=== PATIENT | female | born 1985 | race American Indian/Alaskan Native ===

== ENCOUNTER 2017-05-30 05:42 | Emergency (ER) | payer BC, OTHER ==
[2017-05-30] MEDS ORDERED: ASPIRIN PO ONE (07:09)
[2017-05-30 07:40] LABS: BUN/Creatinine Ratio 11; Basophils % (Auto) 0.6 % (0.0-1.8); Blood Urea Nitrogen 9 mg/dL (7-17); Calcium 8.7 mg/dL (8.4-10.2); Eosinophils # (Auto) 0.3 K/mm3 (0.0-0.4); Eosinophils % (Auto) 3.8 % (0.0-4.3); Hematocrit 38.8 % (30.3-42.9); Hemoglobin 12.8 gm/dl (10.1-14.3); Hemolysis Index 2; Lymphocytes # (Auto) 2.1 K/mm3 (1.2-5.4); Lymphocytes % (Auto) 28.3 % (13.4-35.0); Mean Corpuscular HGB Conc 33 % (30-34); Mean Corpuscular Hemoglobin 28 pg (28-32); Mean Corpuscular Volume 86 fl (79-97); Monocytes # (Auto) 0.6 K/mm3 (0.0-0.8); Monocytes % (Auto) 8.5 % (0.0-7.3); Platelet Count 227 K/mm3 (140-440); Red Cell Distribution Width 13.3 % (13.2-15.2)
[2017-05-30 07:52] LABS: Bilirubin,Urine NEG (Negative); Blood,Urine NEG (Negative); Color,Urine Yellow (Yellow); Mucus,Urine FEW /HPF; Protein,Urine <15 mg/dL mg/dL (Negative); Urobilinogen,Urine < 2.0 mg/dL (<2.0)
--- NOTE | 2017-05-30 09:14 | Emergency Department Report ---
ED Chest Pain HPI - General Chief Complaint: Chest Pain Stated Complaint: CHEST PAIN,DIZZINESS Time Seen by Provider: 05/30/17 08:53 Source: patient Mode of arrival: Ambulatory Limitations: No Limitations - History of Present Illness Initial Comments: 32-year-old female presents to the emergency department, dropped off to be seen, with multiple different complaints. The patient says that she's been dealing with some dizziness and/or lightheadedness over the past few months intermittently. She says that sometimes it feels like she is going to pass out but she has never done so. She also complains of some blurry vision in both eyes that has been going on intermittently since last week. She denies any headache or slurred speech. She denies any numbness but does complain of some paresthesias in the fingers and in the feet. She complains of some intermittent chest pain that affects different part of the chest at different times. Sometimes it'll be below the right breast and she is also felt it towards the left shoulder. She denies any shortness of breath, fever, back pain. Sometimes she will feel nauseated with the dizziness but has not had any vomiting. She has not taken anything for her symptoms prior to presentation. She denies any past medical history. She denies having a primary care physician. She is a tobacco smoker and sometimes will smoke marijuana. - Related Data Home Medications Medication Instructions Recorded Confirmed Last Taken No Known Home Medications [No 06/09/13 06/09/13 Unknown Reported Home Medications] Allergies Allergy/AdvReac Type Severity Reaction Status Date / Time ibuprofen Allergy Itching Verified 05/30/17 07:10 Heart Score - HEART Score History: Slightly suspicious EKG: Normal Age: < 45 Risk factors: 1-2 risk factors Troponin: < normal limit HEART Score: 1 - Critical Actions Critical Actions: 0-3 pts:0.9-1.7%risk of adverse cardiac event.Candidate for discharge ED Review of Systems ROS: Stated complaint: CHEST PAIN,DIZZINESS Other details as noted in HPI Comment: All other systems reviewed and negative Constitutional: denies: chills, fever Eyes: vision change (blurry vision). denies: eye pain, eye discharge ENT: denies: ear pain, throat pain Respiratory: denies: cough, shortness of breath, wheezing Cardiovascular: chest pain. denies: palpitations Gastrointestinal: nausea. denies: vomiting Genitourinary: denies: urgency, dysuria, discharge Musculoskeletal: denies: back pain, joint swelling Skin: denies: rash, lesions Neurological: paresthesias, other (dizziness) ED Past Medical Hx - Past Medical History Previous Medical History?: No - Social History Smoking Status: Current Some Day Smoker - Medications Home Medications: Home Medications Medication Instructions Recorded Confirmed Last Taken Type No Known Home Medications [No 06/09/13 06/09/13 Unknown History Reported Home Medications] ED Physical Exam - General Limitations: No Limitations - Other Other exam information: GENERAL: The patient is well-developed well-nourished. HENT: Normocephalic. Atraumatic. Patient has moist mucous membranes. EYES: Extraocular motions are intact. Pupils equal reactive to light bilaterally. NECK: Supple. Trachea is midline. CHEST/LUNGS: Clear to auscultation. There is no respiratory distress noted. HEART/CARDIOVASCULAR: Regular. There is no tachycardia. There is no murmur. ABDOMEN: Abdomen is soft, nontender. Patient has normal bowel sounds. There is no abdominal distention. SKIN: Skin is warm and dry. NEURO: The patient is awake, alert, and oriented. The patient is cooperative. The patient has no focal neurologic deficits. The patient has normal speech. Cranial nerves II-12 grossly intact. No pronator drift. No dysmetria. No facial asymmetry. MUSCULOSKELETAL: There is no tenderness or deformity. There is no limitation range of motion. There is no evidence of acute injury. Muscle strength 5 out of 5 upper and lower extremities bilaterally. ED Course Vital Signs 05/30/17 05/30/17 05/30/17 05:57 07:00 09:00 Temperature 98.2 F 98.2 F Pulse Rate 71 68 Respiratory 18 18 Rate Blood Pressure 114/66 114/66 122/77 O2 Sat by Pulse 97 98 100 Oximetry 05/30/17 05/30/17 05/30/17 09:30 09:36 09:46 Temperature Pulse Rate 53 L 62 Respiratory 9 L 18 15 Rate Blood Pressure 125/74 125/74 O2 Sat by Pulse 100 99 100 Oximetry 05/30/17 05/30/17 05/30/17 10:00 10:16 10:30 Temperature Pulse Rate 54 L 54 L 56 L Respiratory 21 11 L 13 Rate Blood Pressure 116/69 116/69 128/81 O2 Sat by Pulse 100 100 100 Oximetry 05/30/17 05/30/17 05/30/17 10:46 11:00 11:16 Temperature Pulse Rate 54 L 51 L 62 Respiratory 12 15 12 Rate Blood Pressure 118/72 125/64 125/64 O2 Sat by Pulse 100 100 100 Oximetry 05/30/17 11:30 Temperature Pulse Rate 62 Respiratory 10 L Rate Blood Pressure 122/74 O2 Sat by Pulse 100 Oximetry DARREN score - Darren Score Age > 65: (0) No Aspirin use within the Past 7 Days: (0) No 3 or more CAD Risk Factors: (0) No 2 or more Angina events in past 24 hrs: (1) Yes Known CAD with more than 50% Stenosis: (0) No Elevated Cardiac Markers: (0) No ST Deviation Greater than 0.5mm: (0) No DARREN Score: 1 ED Medical Decision Making - Lab Data Result diagrams: 05/30/17 07:13 05/30/17 07:13 - EKG Data -: EKG Interpreted by Me EKG shows normal: sinus rhythm, axis, intervals (prolonged IL interval), QRS complexes, ST-T waves Rate: normal - EKG Data When compared to previous EKG there are: previous EKG unavailable Interpretation: other (sinus rhythm, normal rate, normal axis, prolonged IL interval) - Radiology Data Radiology results: report reviewed, image reviewed interpreted by me: Chest x-ray does not show any acute process. There are no pleural effusions, obvious pneumonia and there is no pneumothorax. CT scan of head without IV contrast: History: Dizziness. Findings: Ventricles are normal in size and midline in location. No evidence of acute ischemia, hemorrhage or mass. No extra axial fluid collection. Normal brainstem and cerebellum. Normal sinuses and mastoid air cells. Impression: No acute intracranial abnormality. Transcribed By: PTP Dictated By: ARI PAEZ MD Electronically Authenticated By: ARI PAEZ MD Signed Date/Time: 05/30/17 1044 - Medical Decision Making Patient presents with multiple different complaints including intermittent chest pains, acute on chronic dizziness, blurry vision. On physical exam, the patient has normal sounding heart and lungs to auscultation. She would be an NIH stroke scale of 0. There are no obvious focal, motor or sensory deficits in her cranial nerves are intact. EKG did not show any ST elevation FL, ischemia or dysrhythmia. There was a prolonged IL interval but the patient did not show any bradycardia during her ED course. The patient did show some signs of orthostatic hypotension going between supine and sitting. CT of the head did not show any bleed, shift, mass or any acute process. Chest x-ray also did not show any acute process. The rest of the labs have been unremarkable as well including negative troponins 2 and a negative d-dimer. Therefore, regarding her chest pains, the patient is low on the Lawson score criteria. She would have a DARREN score of one of her pain is considered angina and 0 if not. She had a negative d-dimer. Chest x-ray did not show any acute process. The only risk factor the patient would have his intermittent black and mild tobacco use. Therefore she has low suspicion for any acute coronary syndrome as the cause of her intermittent chest pains. However she will be given a referral for cardiology if she would like to follow up. Regarding her dizziness and/or blurred vision, the patient had a CT of the head that did not show any acute process. She does not show any focal, motor or sensory deficits. Patient got IV fluid to treat some possible orthostatic hypotension and upon completion of this liter she says she is feeling better in regards to her dizziness. She was seen ambulatory in the emergency department and does not appear unstable. There is no signs of any ataxia. Overall the patient still may need to follow up with a primary care physician, avionics system engineer and was also given a referral for neurology. However I have not found any reason why the patient requires admission at this time. She was given those appropriate follow-ups and/or specialist that also understands to return to the emergency Department with any worsening of her symptoms or any acute distress. - Differential Diagnosis orthostatic hypotension, vasovagal, vertigo, dysrhythmia, [place] Critical Care Time: No Critical care attestation.: If time is entered above; I have spent that time in minutes in the direct care of this critically ill patient, excluding procedure time. ED Disposition Clinical Impression: Intermittent chest pain, Dizziness, Paresthesia Disposition: DC-01 TO HOME OR SELFCARE Is pt being admited?: No Condition: Stable Instructions: Chest Pain (ED), Paresthesia (ED), Lightheadedness (ED), Dizziness (ED) Additional Instructions: Please follow up with a primary care physician in the next few days. I have given you a referral for a local avionics system engineer, Dr. Hardwick, to follow up regarding your intermittent chest pains. I have also given you a referral for a local neurologist, Dr. Hahn, to follow up regarding your dizziness and/or lightheadedness. Return to the emergency Department with any worsening of your symptoms or any acute distress. Referrals: SHMUEL HARDWICK MD [Staff Physician] - 3-5 Days JONNATHAN HAHN MD [Staff Physician] - 3-5 Days MARGO PALACIO JR, MD [Staff Physician] - 3-5 Days LINDSEY DAY MD [Staff Physician] - 3-5 Days Forms: Work/School Release Form(ED) Time of Disposition: 11:31
[2017-05-30] MEDS ORDERED: NACL 0.9% 1000 ML 1,000 ML IV ONE (09:15)
--- NOTE | 2017-05-30 09:22 | XRay Report ---
Single view chest: History: Chest pain. Findings: Normal cardiomediastinal silhouette. Trachea is midline. No consolidation, pneumothorax or pleural effusion. Impression: No acute cardiopulmonary findings.
--- NOTE | 2017-05-30 11:03 | Cat Scan Report ---
CT scan of head without IV contrast: History: Dizziness. Findings: Ventricles are normal in size and midline in location. No evidence of acute ischemia, hemorrhage or mass. No extra axial fluid collection. Normal brainstem and cerebellum. Normal sinuses and mastoid air cells. Impression: No acute intracranial abnormality.
[2017-05-30 11:54] VITALS: BP 122/74
== END 2017-05-30 12:07 | disposition home or self-care (01) ==
LOC: ED 05:42
DX: R07.9 Chest pain, unspecified (principal); R42 Dizziness and giddiness; R20.2 Paresthesia of skin; F17.200 Nicotine dependence, unspecified, uncomplicated
CPT/HCPCS: 36415; 70450; 71045; 80048; 81001; 84443; 84484; 84703; 85025; 85379; 93005; 93010; 96360; 99285; J7030